=== PATIENT | female | born 2005 | race Caucasian/White ===

== ENCOUNTER 2025-08-10 13:22 | Emergency (ER) | payer OTHER ==
[~2025-08-10] VITALS: Ht 152.4 cm; Wt 48.0 kg
[2025-08-10 13:46] VITALS: BP 152/79; PULSE 104; RESP 18; TEMP 98.2; O2SAT 100
== END 2025-08-10 17:41 | disposition home or self-care (01) ==
LOC: EMS 13:25
DX: M25.472 Effusion, left ankle (principal)
CPT/HCPCS: 99283